=== PATIENT | male | born 1990 | race Caucasian/White ===

== ENCOUNTER 2016-05-11 10:46 | Emergency (ER) | payer SELFPAY ==
[~2016-05-11] VITALS: Ht 175.3 cm; Wt 95.0 kg
[~2016-05-11 10:46] MED LIST: IBUP600T26 PO; IBUP800T23 PO; LORTA5 PO; ROBA750T3 PO
[2016-05-11 10:51] VITALS: BP 139/89; PULSE 92; RESP 18; TEMP 97.7; O2SAT 97
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
[2016-05-11] MEDS ORDERED: IBUPROFEN 800 MG TAB PO ONE (11:30)
[2016-05-11] MEDS ORDERED: CYCLOBENZAPRINE HCL 10 MG TAB PO ONE (11:30)
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
[2016-05-11] MEDS ORDERED: CYCL1TAB29 PO (12:48)
[2016-05-11] MEDS ORDERED: IBUP800T23 PO (12:48)
== END 2016-05-11 13:22 | disposition home or self-care (01) ==
LOC: PHEFT 10:46
DX: S80.01XA Contusion of right knee, initial encounter (principal); S90.02XA Contusion of left ankle, initial encounter; F17.200 Nicotine dependence, unspecified, uncomplicated; V49.88XA Car occupant (driver) (passenger) injured in other specified transport accidents, initial encounter; Y92.410 Unspecified street and highway as the place of occurrence of the external cause
CPT/HCPCS: 73564; 73610; 99283; E0113

== ENCOUNTER 2016-06-11 15:29 | Emergency (ER) | payer SELFPAY ==
[~2016-06-11] VITALS: Ht 175.3 cm; Wt 96.0 kg
[~2016-06-11 15:29] MED LIST changes: +CYCL1TAB29 PO; -IBUP600T26 PO; -LORTA5 PO; -ROBA750T3 PO
[2016-06-11 15:40] VITALS: BP 134/96; PULSE 106; RESP 16; TEMP 98.8; O2SAT 97
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
[2016-06-11] MEDS ORDERED: IBUPROFEN 800 MG TAB PO ONE (16:30)
[2016-06-11] MEDS ORDERED: IBUP800T23 PO (16:34)
== END 2016-06-11 16:42 | disposition home or self-care (01) ==
LOC: PHEFT 15:29
DX: S93.402A Sprain of unspecified ligament of left ankle, initial encounter (principal); F17.210 Nicotine dependence, cigarettes, uncomplicated; X50.1XXA Overexertion from prolonged static or awkward postures, initial encounter; Y93.9 Activity, unspecified; Y92.9 Unspecified place or not applicable; Y99.9 Unspecified external cause status
CPT/HCPCS: 73610; 99283; E0113

== ENCOUNTER 2016-08-07 09:40 | Emergency (ER) | payer SELFPAY ==
[~2016-08-07] VITALS: Ht 175.3 cm; Wt 97.4 kg
[~2016-08-07 09:40] MED LIST changes: -CYCL1TAB29 PO
[2016-08-07 09:43] VITALS: BP 146/104; PULSE 100; RESP 18; TEMP 98.5; O2SAT 96
[2016-08-07] MEDS ORDERED: predniSONE 20 MG TAB PO ONE (10:30)
[2016-08-07] MEDS ORDERED: IBUPROFEN 600 MG TAB PO ONE (10:30)
--- NOTE | 2016-08-07 10:39 | RADHPO ---
EXAM DATE/TIME: 08/07/2016 10:24 [place] Corrected on: August 15, 2016; Corrected Medical and Surgical history [facility] COMPARISON: No previous studies available for comparison. INDICATIONS : Right posterior foot/heel pain with no known injury. MEDICAL HISTORY : None. SURGICAL HISTORY : None. ENCOUNTER: Initial ACUITY: 2 days PAIN SCORE: 10/10 LOCATION: Right posterior foot FINDINGS: No definite fractures, or dislocations are identified. No definite lytic or sclerotic lesion is seen . The joint spaces are well maintained. CONCLUSION: Unremarkable study. Suzanne Kaur MD on August 07, 2016 at 10:37 Board Certified Radiologist. This report was verified electronically.
--- NOTE | 2016-08-07 10:40 | RADHPO ---
EXAM DATE/TIME: 08/07/2016 10:28 [facility] COMPARISON: No previous studies available for comparison. INDICATIONS : Right posterior heel/ankle pain with no known injury. MEDICAL HISTORY : None. SURGICAL HISTORY : None. ENCOUNTER: Initial ACUITY: 2 days PAIN SCORE: 10/10 LOCATION: Right posterior ankle FINDINGS: No definite fractures, or dislocations are identified. No definite lytic or sclerotic lesion is seen . The joint spaces are well maintained. CONCLUSION: Unremarkable study. Suzanne Kaur MD on August 07, 2016 at 10:38 Board Certified Radiologist. This report was verified electronically.
--- NOTE | 2016-08-07 10:41 | PD ---
HPI Chief Complaint: Musculoskeletal Complaint Time Seen by Provider: 10:23 Travel History International Travel<30 days: No Contact w/Intl Traveler<30days: No Traveled to known affect area: No History of Present Illness HPI Patient is a 26-year-old male who presents to emergency room with complaints of pain to his right foot. Patient reports that he has increased pain to his right ankle/right heel. Denies any trauma or fall. Reports that he doesn't remember twisting his ankle. Reports that pain is shooting in nature, he did not take any medications to help with his symptoms. No hx of pains to his ankle in the past PFSH Past Medical History Asthma: No Autoimmune Disease: No Blood Disorders: No Cardiovascular Problems: No Cystic Fibrosis: No Diminished Hearing: No Gastrointestinal Disorders: No Genitourinary: No Musculoskeletal: No Neurologic: No Reproductive: No Respiratory: No Immunizations Current: Yes Sleep Apnea: No Past Surgical History Abdominal Surgery: No Cardiac Surgery: No Ear Surgery: No Endocrine Surgery: No Eye Surgery: No Genitourinary Surgery: No Gynecologic Surgery: No Neurologic Surgery: No Oral Surgery: No Thoracic Surgery: No Other Surgery: No Social History Alcohol Use: No Tobacco Use: Yes (1 PPD) Substance Use: No Allergies-Medications (Allergen,Severity, Reaction): Coded Allergies: No Known Allergies (Verified , 08/07/16) Reported Meds & Prescriptions Reported Meds & Active Scripts Active No Active Prescriptions or Reported Medications Review of Systems General / Constitutional: No: Fever Eyes: No: Visual changes HENT: No: Headaches Cardiovascular: No: Chest Pain or Discomfort Respiratory: No: Shortness of Breath Gastrointestinal: No: Abdominal Pain Genitourinary: No: Dysuria Musculoskeletal: Positive: Pain (right ankle/heel) Skin: No Rash Neurologic: No: Weakness Psychiatric: No: Depression Endocrine: No: Polydipsia Hematologic/Lymphatic: No: Easy Bruising Physical Exam Narrative GENERAL: Well-nourished, well-developed patient. SKIN: Focused skin assessment warm/dry. HEAD: Normocephalic. EYES: No scleral icterus. No injection or drainage. NECK: Supple, trachea midline. No JVD or lymphadenopathy. CARDIOVASCULAR: Regular rate and rhythm without murmurs, gallops, or rubs. RESPIRATORY: Breath sounds equal bilaterally. No accessory muscle use. GASTROINTESTINAL: Abdomen soft, non-tender, nondistended. MUSCULOSKELETAL: No cyanosis, or edema. Patient with no open fracture, no signs of infection, no swelling to b/l LE's. pulses intact, neurovascularly intact, patient with pain with range of motion to the right ankle, patient with point tenderness to right heel, left ankle: Normal exam BACK: Nontender without obvious deformity. No CVA tenderness. Data Data Last Documented VS Vital Signs Date Time Temp Pulse Resp B/P Pulse Ox O2 Delivery O2 Flow Rate FiO2 08/07/16 09:43 98.5 100 18 146/104 96 Orders Foot, Complete ([id number]) (08/07/16 ) Ankle, Complete ([id number]) (08/07/16 ) Ibuprofen (Motrin) (08/07/16 10:30) Prednisone (Deltasone) (08/07/16 10:30) Ice/Cold Pack (08/07/16 10:23) MDM Medical Decision Making Medical Screen Exam Complete: Yes Emergency Medical Condition: Yes Interpretation(s) Vital Signs Date Time Temp Pulse Resp B/P Pulse Ox O2 Delivery O2 Flow Rate FiO2 08/07/16 09:43 98.5 100 18 146/104 96 Differential Diagnosis Ankle/Heel spur, ankle/heel fracture, tendinitis Narrative Course 26-year-old male with complaints of his to his right ankle/heel since yesterday afternoon. Patient with no obvious injuries to right heel, no swelling or edema , patient does have point tenderness and pain with range of motion to his right heel. xray of right foot and heel ordered ice pack placed will treat with motrin and steroids Last Impressions Foot X-Ray 08/07/16 0000 Signed Impressions: Service Date/Time: July 10:24 - CONCLUSION: Unremarkable study. Suzanne Kaur MD Ankle X-Ray 08/07/16 0000 Signed Impressions: Service Date/Time: July 10:28 - CONCLUSION: Unremarkable study. Suzanne Kaur MD plan to have patient follow up with podiatry and return to ER as needed Diagnosis Primary Impression: Ankle pain, right Qualified Code: M25.571 - Acute right ankle pain Referrals: Mesfin Tariq DPM Patient Instructions: General Instructions Additional Instructions: Return to the emergency room as needed Please follow-up with financial risk manager as soon as possible Rest, ice, elevate right leg Med/Other Pt SpecificInfo: Prescription(s) given Scripts Methylprednisolone Dosepak (Medrol Dosepak)4 Mg Dspk4 Mg PO DIRECTED #1 DSPK Ref 0 Per Pharmacist direction Prov:Sharon Mcdaniel DO 08/07/16 Ibuprofen 600 Mg [id number] Mg PO Q6H PRN (Pain/Inflammation) #40 TAB Ref 0 Prov:Sharon Mcdaniel DO 08/07/16 Disposition: 01 DISCHARGE HOME Condition: Stable Sharon Mcdaniel DO Aug 07, 2016 10:41
[2016-08-07] MEDS ORDERED: MEDR4PAK PO (11:06)
[2016-08-07] MEDS ORDERED: IBUP-232 PO (11:06)
== END 2016-08-07 11:15 | disposition home or self-care (01) ==
LOC: PHEFT 09:40
DX: M25.571 Pain in right ankle and joints of right foot (principal); F17.210 Nicotine dependence, cigarettes, uncomplicated
CPT/HCPCS: 73610; 73630; 99283; J7512